=== PATIENT | male | born 1980 | race Caucasian/White ===

== ENCOUNTER 2022-03-27 19:29 | Emergency (ER) | payer SELFPAY ==
[~2022-03-27] VITALS: Ht 180.3 cm; Wt 127.0 kg
--- NOTE | 2022-03-27 20:29 | NUR ---
BIBSELF C/O UPPER ABD PAIN X 1 DAY FELT WORSE TODAY. DIARRHEA X1 DAY. PT A/OX4; CHADIAN SPEAKING. TOLERATING R/A WELL WITH NO SOB OR RESP DISTRESS. CONNECTED PT TO POX AND MONITOR.
[2022-03-27] MEDS ORDERED: MORPHINE SULFATE INJ 2 MG/ML DISP.SYRIN IV ONE (21:00)
[2022-03-27] MEDS ORDERED: IV NS 0.9% 1,000 ML BAG IV ONE (21:00)
[2022-03-27] MEDS ORDERED: ONDANSETRON HCL/PF 4 MG/2 ML VIAL IVP ONE (21:00)
[2022-03-27] MEDS ORDERED: ONDANSETRON HCL/PF 4 MG/2 ML VIAL ONE (21:02)
[2022-03-27] MEDS ORDERED: MORPHINE SULFATE INJ 4 MG/ML DISP.SYRIN ONE (21:02)
--- NOTE | 2022-03-27 21:14 | NUR ---
BLOOD COLLECTED AND GIVEN TO LAB
--- NOTE | 2022-03-27 21:15 | NUR ---
RAC #18G S/L; IVF INFUSING
--- NOTE | 2022-03-27 21:35 | NUR ---
MANAGER PROJECT MANAGEMENT AT PT'S BEDSIDE
[2022-03-27 21:54] LABS: BASOPHILS % (AUTO) 0.2 % (0.0-2.0); HEMATOCRIT 42 % (39-51); HEMOGLOBIN 13.9 g/dL (13.5-17.5); LYMPHOCYTES # (AUTO) 1.6 K/uL (0.8-4.8); LYMPHOCYTES % (AUTO) 15.5 % (20.0-44.0); MEAN CORPUSCULAR HGB CONC 33 g/dl (31.0-36.0); MEAN CORPUSCULAR VOLUME 93 fL (80-96); MONOCYTES # (AUTO) 0.7 K/uL (0.1-1.30); MONOCYTES % (AUTO) 6.8 % (2.0-12.0); NEUTROPHILS # (AUTO) 7.8 K/uL (1.8-8.9); NEUTROPHILS % (AUTO) 75.5 % (43.0-81.0); PLATELET COUNT (AUTO) 257 K/uL (150-450); RED BLOOD CELL COUNT(AUTO) 4.49 MIL/uL (4.5-6.0); WHITE BLOOD COUNT (AUTO) 10.3 K/uL (4.3-11.0)
[2022-03-27] MEDS ORDERED: PANTOPRAZOLE 40 MG VIAL ONE (22:07)
[2022-03-27 22:08] LABS: ALBUMIN 3.4 g/dL (3.4-5.0); BILIRUBIN,DIRECT 0.1 mg/dL (0.0-0.2); BILIRUBIN,TOTAL 0.4 mg/dL (0.2-1.0); CREATININE 0.9 mg/dL (0.6-1.3); POTASSIUM 3.7 mmol/L (3.5-5.1); TOTAL PROTEIN, SERUM 7.5 g/dL (6.4-8.2)
--- NOTE | 2022-03-27 22:20 | NUR ---
UPDATED PATRICIA () ON PT'S CONDITION
[2022-03-27 22:24] LABS: BILIRUBIN,URINE SMALL (NEGATIVE); COLOR,URINE YELLOW (YELLOW); LEUKOCYTE ESTERASE ,URINE NEGATIVE (NEGATIVE); NITRITE, URINE NEGATIVE (NEGATIVE); PH,URINE 5.5 (5.0-8.0); PROTEIN,URINE TRACE mg/dl (NEGATIVE); UGLUCOSE NEGATIVE (NEGATIVE); UROBILINOGEN,URINE 0.2 EU/dL (0.2)
[2022-03-27] MEDS ORDERED: PANTOPRAZOLE 40 MG VIAL IV ONE (22:30)
[2022-03-27] MEDS ORDERED: FAMO-131 PO (22:50)
--- NOTE | 2022-03-27 23:05 | NUR ---
Patient discharged to home in stable condition. Written and verbal after care instructions given. Patient verbalizes understanding of instruction.IV removed. Catheter intact and site benign. Pressure and 4x4 applied to site. No bleeding noted.
[2022-03-27 23:07] VITALS: BP 108/73
== END 2022-03-27 23:07 | disposition home or self-care (01) ==
LOC: ER 19:34
DX: R10.13 Epigastric pain (principal); R10.33 Periumbilical pain; R10.31 Right lower quadrant pain; R19.7 Diarrhea, unspecified; Z98.890 Other specified postprocedural states; Z60.2 Problems related to living alone
CPT/HCPCS: 99285; 74176; 96374; 71045; 96375; 96361; 93005; 85025; 80048; 83690; 80076; 81003; 36415; 85730; J2270; J2405; J7030; C9113